=== PATIENT | female | born 2000 | race Hispanic/Latino ===

== ENCOUNTER 2020-07-26 09:02 | Outpatient (CLI) | payer OTHER ==
--- NOTE | 2020-07-26 09:39 | ULT ---
EXAM: OB ultrasound COMPARISON: None HISTORY: female. Evaluate size, dates, and anatomy. TECHNIQUE: Multiplanar grayscale and color Doppler images were obtained in a transabdominal ult rasound. FINDINGS: There is a single live intrauterine with heart rate of 140 bpm. A survey wa s performed which is unremarkable. The head, intracranial structures, heart, stomach, kidneys, umbilical cord, umbilical cord insertion, spine, face, and extremities were evaluated and were unrema rkable. Estimated weight is 372 g. Average age of the fetus based off today's examination is 20 weeks 5 days. BPD 4.75 cm -- 20 weeks 3 days HC 18.16 cm -- 20 weeks 4 days AC 15.85 cm -- 21 weeks 0 days FL 3.34 cm -- 20 weeks 4 days The placenta is posterior in location without focal abnormality. JUVE is 13.13 cm which is normal. The cervix is normal in length. There is no evidence of placenta previa. IMPRESSION: Single live intrauterine with estimated age of 20 weeks 5 days.
== END 2020-07-26 09:03 | disposition home or self-care (01) ==
LOC: BICULT 09:02
PROVIDERS: ATTEND Family Medicine
DX: Z34.02 Encounter for supervision of normal first pregnancy, second trimester (principal); Z3A.20 20 weeks gestation of pregnancy
CPT/HCPCS: 76805